=== PATIENT | male | born 1960 | race Caucasian/White ===

== ENCOUNTER 2017-01-01 11:35 | Emergency (ER) | payer OTHER ==
[~2017-01-01] VITALS: Wt 94.5 kg
[2017-01-01] MEDS ORDERED: ACETAMINOPHEN 500 MG TAB PO STA (12:38)
[2017-01-01 13:30] VITALS: BP 140/89; PULSE 127; RESP 18; TEMP 100.4
[2017-01-01] MEDS ORDERED: CEPH-443 PO (13:32)
[2017-01-01] MEDS ORDERED: SULF1TAB31 PO (13:32)
--- NOTE | 2017-01-01 17:59 | ERD ---
ER Documentation Chief Complaint Date/Time DATE: 01/01/17 TIME: 17:54 Chief Complaint BODYACHES, ONSET 2 DAYS, NO FEVER, ABCESS ON COCCYX AREA HPI Patient is a 56-year-old male with past medical history of type 2 diabetes and hypertension, presenting to the emergency department with complaints of abscess to his left lower buttock area. He states he cannot sleep secondary to pain. Pain is worse with sitting. Symptoms are intermittent. He reports pain at 10 out of 10 on the pain scale. Associated with fevers. He denies headache, chest pain, shortness of breath, or other symptoms currently. ROS All systems reviewed and are negative except as per history of present illness. Medications Home Meds Active Scripts Cephalexin* (Keflex*) 500 Mg Capsule, 500 MG PO TID for 7 Days, #21 CAP Prov:LAKESHA HOLLY PA-C 01/01/17 Sulfamethoxazole/Trimethoprim* (Bactrim Ds* Tablet) 1 Each Tablet, 1 TAB PO BID , #14 TAB Prov:LAKESHA HOLLY PA-C 01/01/17 PMhx/Soc Medical and Surgical Hx: pt denies Medical Hx, pt denies Surgical Hx Hx Alcohol Use: No Hx Substance Use: No Hx Tobacco Use: No Smoking Status: Former smoker Physical Exam Vitals Vital Signs Date Time Temp Pulse Resp B/P Pulse Ox O2 Delivery O2 Flow Rate FiO2 01/01/17 13:30 100.4 127 18 140/89 96 Room Air 01/01/17 12:50 102.6 127 20 170/101 96 Room Air 01/01/17 11:37 101.0 119 17 191/107 98 Physical Exam Const: Nontoxic, well-appearing male in no acute distress. Head: Atraumatic Eyes: Normal Conjunctiva ENT: Normal External Ears, Nose and Mouth. Skin: There is an approximate 1 cm x 1 cm indurated area to the medial left buttock. Mild surrounding erythema but no significant warmth. Back: No midline or flank tenderness Ext: No cyanosis, or edema Neur: Awake and alert Psych: Normal Mood and Affect Results 24 hrs Current Medications Medications (Trade) Dose Ordered Sig/Paul Route PRN Reason Start Time Stop Time Status Last Admin Dose Admin Acetaminophen (Tylenol Tab) 1,000 mg ONCE STAT PO 01/01/17 12:38 01/01/17 12:39 DC 01/01/17 12:52 Clonidine (Catapres) 0.1 mg ONCE ONCE PO 01/01/17 13:00 01/01/17 13:01 DC 01/01/17 12:52 Procedures/MDM 56-year-old male presents to the emergency department with complaints of abscess to the left buttock region. Physical examination is consistent with an uncomplicated abscess. Low suspicion for sepsis, or other significant comp located cellulitis. On initial presentation the patient was slightly tachycardic at 119, febrile 101.0F. Her pressure was elevated at 181/107. The patient was given Tylenol 1000 mg and 0.1 mg of clonidine. Temperature lowered to 100.4F, and blood pressure lowered to 140/89. The patient was nontoxic- appearing and I have low suspicion for sepsis. He was given prescription for Floxin and Bactrim. He was advised to return immediately for any new or worsening symptoms. I felt he was stable for outpatient management in the interim and he may return if he is worsening. Follow-up with his primary care physician within 1-2 days was advised. Low suspicion for life-threatening illness at time of discharge. Departure Diagnosis: Primary Impression: Abscess Condition: Fair Patient Instructions: Abscess, Antiobiotic Treatment Only Referrals: [facility] YOU HAVE RECEIVED A MEDICAL SCREENING EXAM AND THE RESULTS INDICATE THAT YOU DO NOT HAVE A CONDITION THAT REQUIRES URGENT TREATMENT IN THE EMERGENCY DEPARTMENT. FURTHER EVALUATION AND TREATMENT OF YOUR CONDITION CAN WAIT UNTIL YOU ARE SEEN IN YOUR DOCTORS OFFICE WITHIN THE NEXT 1-2 DAYS. IT IS YOUR RESPONSIBILITY TO MAKE AN APPOINTMENT FOR FOLOW-UP CARE. IF YOU HAVE A PRIMARY DOCTOR --you should call your primary doctor and schedule an appointment IF YOU DO NOT HAVE A PRIMARY DOCTOR YOU CAN CALL OUR PHYSICIAN REFERRAL HOTLINE AT IF YOU CAN NOT AFFORD TO SEE A PHYSICIAN YOU CAN CHOSE FROM THE FOLLOWING [facility] [address] [facility] [address] [facility] [address] [facility] [address] [facility] [address] [facility] [address] Additional Instructions: Return in 48 hours for wound recheck. Follow up with your PCP within the next 1-3 days for a repeat evaluation. If you require a referral to a specialist, your Primary Care Provider may be able to provide this for you. In most patient cases, a referral is not required. If you have further questions regarding this matter, please ask your Primary Care Provider. Return the the emergency department immediately if symptoms worsen or change. If you have any questions regarding medications, ask your pharmacist or us before you leave. If any adverse reactions, occur while taking your medications, discontinue the treatment and return to the emergency department immediately. If any new or worsening symptoms, uncontrolled fevers, or other unexplained symptoms occur, return to the emergency department immediately. Take your medications as directed, and complete the entire course of treatment. LAKESHA HOLLY PA-C Jan 01, 2017 17:58
== END 2017-01-01 13:54 | disposition home or self-care (01) ==
LOC: FTE 11:35
DX: L02.31 Cutaneous abscess of buttock (principal)
CPT/HCPCS: Z7502; Z7610; 99284